=== PATIENT | female | born 1995 | race Caucasian/White ===

== ENCOUNTER → 2020-09-16 09:46 | Outpatient (BNVA) | payer OTHER, SELFPAY | PROVIDERS: Family Provider Family Medicine; PCP Family Medicine; Visit Provider Podiatrist Foot & Ankle Surgery | DX: M79.671 Pain in right foot (principal) | CPT/HCPCS: 73630 ==

== ENCOUNTER 2021-09-16 08:32 | Oncology outpatient (recurring) (ONCR) | payer OTHER, SELFPAY ==
[2021-09-16 10:04] LABS: Basophils % 0.3 %; Eosinophils # 0.2 10^3/uL (0.0-0.8); Eosinophils % 1.9 %; Hematocrit 40.8 % (37.0-47.0); Hemoglobin 13.3 g/dL (11.5-15.3); Lymphocytes # 2.7 10^3/uL (0.8-4.8); Lymphocytes % 28.3 %; Mean Corpuscular HGB Conc 32.6 g/dL (30.0-36.0); Mean Corpuscular Hemoglobin 28.4 pg (28.0-34.0); Monocytes # 0.6 10^3/uL (0.2-0.9); Monocytes % 6.6 %; Neutrophils # 5.84 10^3/uL (1.8-7.7); Neutrophils % 62.6 %; Nucleated Red Blood Cells % 0 %; Platelet Count 617 10^3/cmm (130-400); Red Blood Count 4.69 10^6/uL (4.1-5.3); Red Cell Distribution Width 12.5 % (12.1-15.1); White Blood Count 9.4 10^3/uL (4.0-10.0)
[2021-09-16 10:20] LABS: Ferritin 48 ng/mL (15-150); Iron 52 ug/dL (37-145); Percent Saturation 16.1 % (20-50); Total Iron Binding Capacity 321 mcg/dl; Unsaturated Iron Binding 269 ug/dL (112-347)
[2021-09-16 13:24] LABS: LAB Peripheral Smear Sent for Review
== END 2021-09-25 23:59 | disposition home or self-care (01) ==
PROVIDERS: PCP Family Medicine; Visit Provider Internal Medicine Medical Oncology
DX: D75.839 Thrombocytosis, unspecified (principal); R53.83 Other fatigue
CPT/HCPCS: 36415; 82728; 83540; 83550; 85025

== ENCOUNTER 2024-01-27 17:12 | Outpatient (CLI) | payer MEDICAID, SELFPAY ==
[2024-01-27 17:19] VITALS: BMI 39.2
[2024-01-27 17:24] VITALS: BP 145/95; PULSE 111
[2024-01-27 17:46] VITALS: BP 137/88; PULSE 107
[2024-01-27 18:12] VITALS: BP 141/93; PULSE 105
[2024-01-27 18:14] LABS: Bilirubin Urine Negative (Negative); Blood Urine Negative (Negative); Glucose Urine UA Negative (Normal); Ketones Urine Negative (Negative); Leukocyte Esterase Urine Trace (Negative); Nitrate Urine Negative (Negative); Protein Urine Negative (Negative); Specific Gravity, Urine 1.004 (1.005-1.030); Urine Appearance Clear (CLEAR); Urine Color Yellow (Yellow); Urobilinogen Urine 0.2 mg/dL (Negative)
[2024-01-27 18:16] LABS: Add Urine Microscopic? YES; Bacteria Urine Trace /hpf; Hyaline Casts Urine 0-4 /lpf; RBC Urine 0-2 /hpf (0-2); Squamous Epithelial Cell Urine 0-5 /hpf (0-5); WBC Urine 0-5 /hpf (0-5)
[2024-01-27 18:17] LABS: Basophils % 0.2 %; Eosinophils # 0.1 10^3/uL (0.0-0.8); Eosinophils % 0.9 %; Hematocrit 31.6 % (36-47); Lymphocytes % 14.4 %; Mean Corpuscular HGB Conc 32.9 g/dL (30-55); Mean Corpuscular Hemoglobin 27.7 pg (27-33); Mean Corpuscular Volume 84.3 fl (85-98); Monocytes # 0.8 10^3/uL (0.2-0.9); Neutrophils # 10.59 10^3/uL (1.8-7.7); Nucleated Red Blood Cells % 0 %; Platelet Count 404 10^3/cmm (157-399); Red Blood Count 3.75 10^6/uL (3.85-5.65); Red Cell Distribution Width 12.9 % (12.1-15.1); White Blood Count 13.59 10^3/uL (3.29-11.43)
[2024-01-27 18:32] VITALS: BP 136/86; PULSE 96
[2024-01-27 18:35] LABS: Alanine Aminotransferase 8 U/L (0-33); Albumin Level 3.3 g/dL (3.5-5.2); Alkaline Phosphatase 110 U/L (35-105); Aspartate Amino Transferase 13 U/L (0-32); Blood Urea Nitrogen 5 mg/dL (6-20); Calcium 9.7 mg/dL (8.5-10.5); Carbon Dioxide 22 mmol/L (22-29); Chloride 101 mmol/L (98-107); Creatinine Clr Calc Pharmacy 230.6255; Globulin 3.1 g/dL (1.3-4.6); Glomerular Filtration Rate 145.9 mL/min (90-130); Glucose 143 mg/dL (65-115); Osmolality Calculated 278 mOsm/kg (285-295); Sodium 134 mmol/L (136-145); Total Bilirubin 0.2 mg/dL (0.15-1.2); Total Protein 6.4 g/dL (6.6-8.7); Uric Acid 3.9 mg/dL (2.4-5.7)
[2024-01-27 18:36] LABS: Urine Creatinine 35 mg/dL (28-217); Urine Protein Random 4 mg/dL
[2024-01-27 18:37] LABS: UPRO/UCREAT Ratio 0.11 mg/mg CR
== END 2024-01-27 18:54 | disposition home or self-care (01) ==
LOC: OPOB 17:13 → OBGYN 17:15
PROVIDERS: PCP Family Medicine; Visit Provider Family Medicine
DX: O16.9 Unspecified maternal hypertension, unspecified trimester (principal); Z3A.00 Weeks of gestation of pregnancy not specified
CPT/HCPCS: 80053; 81001; 82570; 84156; 84550; 85025

== ENCOUNTER 2024-03-10 10:20 | Outpatient (CLI) | payer MEDICAID, SELFPAY ==
[2024-03-10] VITALS (23 sets, daily range): BP systolic 84–212; BP diastolic 53–111; PULSE 56–120; BMI 40.4
[2024-03-10 10:52] LABS: Basophils # 0.1 10^3/uL (0.0-0.1); Basophils % 0.4 %; Eosinophils # 0.1 10^3/uL (0.0-0.8); Eosinophils % 1.1 %; Hematocrit 31.8 % (36-47); Lymphocytes # 2.8 10^3/uL (0.8-4.8); Lymphocytes % 21.2 %; Mean Corpuscular HGB Conc 32.7 g/dL (30-55); Mean Corpuscular Hemoglobin 26.7 pg (27-33); Mean Corpuscular Volume 81.5 fl (85-98); Mean Platelet Volume 10.4 fL (7.4-10.4); Monocytes # 0.7 10^3/uL (0.2-0.9); Monocytes % 5.5 %; Neutrophils # 9.28 10^3/uL (1.8-7.7); Neutrophils % 71.3 %; Nucleated Red Blood Cells % 0 %; Platelet Count 466 10^3/cmm (157-399)
[2024-03-10 10:58] LABS: Bilirubin Urine Negative (Negative); Blood Urine Negative (Negative); Glucose Urine UA Negative (Normal); Ketones Urine Negative (Negative); Leukocyte Esterase Urine 1+ (Negative); Nitrate Urine Negative (Negative); Protein Urine Negative (Negative); Urine Appearance Clear (CLEAR); Urine Color Yellow (Yellow); Urobilinogen Urine 0.2 mg/dL (Negative); pH Urine 7.5 (5-7)
[2024-03-10 11:03] LABS: Add Urine Microscopic? YES; Bacteria Urine 1+ /hpf; Hyaline Casts Urine 2.05 /lpf; RBC Urine 0-2 /hpf (0-2); Squamous Epithelial Cell Urine 0-5 /hpf (0-5)
[2024-03-10 11:09] LABS: Alanine Aminotransferase 9 U/L (0-33); Albumin Level 3.3 g/dL (3.5-5.2); Alkaline Phosphatase 148 U/L (35-105); Blood Urea Nitrogen 5 mg/dL (6-20); Calcium 9.4 mg/dL (8.5-10.5); Carbon Dioxide 20 mmol/L (22-29); Chloride 102 mmol/L (98-107); Globulin 3.7 g/dL (1.3-4.6); Glomerular Filtration Rate 118.2 mL/min (90-130); Glucose 138 mg/dL (65-115); Osmolality Calculated 281 mOsm/kg (285-295); Sodium 136 mmol/L (136-145); Total Bilirubin 0.2 mg/dL (0.15-1.2); Uric Acid 6.3 mg/dL (2.4-5.7)
[2024-03-10 11:11] LABS: Anion Gap 17.6 (5-19); Aspartate Amino Transferase 19 U/L (0-32); Potassium 3.6 mmol/L (3.5-5.1)
[2024-03-10 11:15] LABS: UPRO/UCREAT Ratio 0.11 mg/mg CR; Urine Creatinine 80 mg/dL (28-217); Urine Protein Random 9 mg/dL
[2024-03-10 11:17] LABS: Add Urine Culture? No
[2024-03-10] MEDS: NIFEdipine ER (24 hr) 30 mg Tablet 60 MG PO (11:47)
[2024-03-10] MEDS: hyDRALAzine 10 mg Tablet PO (11:48)
--- NOTE | 2024-03-10 13:04 | P.TS_ITS ---
Transfer Summary Providers Date of Discharge/Transfer: 03/10/24 Attending Provider at Admission: Ana Weems MD Attending Provider at Transfer: Ana Weems MD Primary Care Provider: Ana Weems MD Transfer Plans: Anticipated date of transfer: 03/10/24 . Receiving Facility: [facility] . Receiving Provider: Dr. Anamaria Diaz . Additional transfer facility information: After speaking with Dr. Diaz we will start her on magnesium 4 g load at 2 g an hour. We will also go ahead and administer betamethasone 12 mg IM x 1. . Reason for Visit Reason for Visit Elevated BP Hospital Course Hospital Course This is a 28-year-old G1, P0 at 34 weeks 5 days gestation with an JEN of 04/16/2025 who presented to clinic today for routine follow-up visit. (She was diagnosed around 28 weeks gestation with -induced hypertension with an intermittent blood pressure of 140/90. Since most of her blood pressures were within normal limits she was not started on any antihypertensive medications and was monitored. PIH labs were negative) in clinic today her blood pressures were elevated 180/100 and she was sent to labor and delivery for further evaluation. Upon presentation to labor and delivery her blood pressure was 212/111. Follow- up blood pressures on bedrest were 184/99, 182/95, 181/96,184/101. Her urine was negative for protein, her protein creatinine ratio was 0.11 her platelets 466 uric acid 6.3 AST 19 and ALT 9. When her PIH labs were drawn at the patient's blood pressure bottomed out and she nearly passed out. However shortly thereafter her pressure amee again to the 180s. Her pulse has been around 70s to 80s which is around her baseline. heart tones have been reactive. No contractions no loss of fluid no bleeding The patient was given 10 mg oral hydralazine along with 60 mg nifedipine XL x 1. With both those medications on board her blood pressure came down to 163/92. The patient does complain of headache and seeing spots. She has no right upper quadrant pain. Trace edema. This morning in clinic she had a growth ultrasound with ELLIOT that were within normal limits. ELLIOT was around 17. Biophysical profile 8 out of 8 The patient has had routine care at [facility]. Blood type O+ antibody negative, hepatitis B nonreactive, hepatitis C nonreactive, HIV nonreactive, RPR nonreactive, rubella immune, she passed her 1 hour glucose tolerance test. Currently GBS unknown Physical Exam Narrative: Alert and oriented, sitting up in bed, heart regular rate and rhythm, lungs clear to auscultation bilaterally, abdomen is soft gravid, nontender, extremities have trace edema but no calf tenderness TS Data Studies Completed and Pending Laboratory Last Values WBC 13.00 10^3/uL (3.29-11.43) H 03/10/24 10:45 RBC 3.90 10^6/uL (3.85-5.65) 03/10/24 10:45 Hgb 10.40 g/dL (11.27-16.99) L 03/10/24 10:45 Hct 31.8 % (36-47) L 03/10/24 10:45 MCV 81.5 fl (85-98) L 03/10/24 10:45 MCH 26.7 pg (27-33) L 03/10/24 10:45 MCHC 32.7 g/dL (30-55) 03/10/24 10:45 RDW 13.0 % (12.1-15.1) 03/10/24 10:45 Plt Count 466 10^3/cmm (157-399) H 03/10/24 10:45 MPV 10.4 fL (7.4-10.4) 03/10/24 10:45 Neut % (Auto) 71.3 % 03/10/24 10:45 Lymph % (Auto) 21.2 % 03/10/24 10:45 Boundary % (Auto) 5.5 % 03/10/24 10:45 Eos % (Auto) 1.1 % 03/10/24 10:45 Baso % (Auto) 0.4 % 03/10/24 10:45 Neut # (Auto) 9.28 10^3/uL (1.8-7.7) H 03/10/24 10:45 Lymph # (Auto) 2.8 10^3/uL (0.8-4.8) 03/10/24 10:45 Boundary # (Auto) 0.7 10^3/uL (0.2-0.9) 03/10/24 10:45 Eos # (Auto) 0.1 10^3/uL (0.0-0.8) 03/10/24 10:45 Baso # (Auto) 0.1 10^3/uL (0.0-0.1) 03/10/24 10:45 Nucleated RBC % (auto) 0 % 03/10/24 10:45 Nucleated RBCs # 0.0 /100WBC 03/10/24 10:45 Sodium 136 mmol/L (136-145) 03/10/24 10:45 Potassium 3.6 mmol/L (3.5-5.1) 03/10/24 10:45 Chloride 102 mmol/L (98-107) 03/10/24 10:45 Carbon Dioxide 20 mmol/L (22-29) L 03/10/24 10:45 Anion Gap 17.6 (5-19) 03/10/24 10:45 BUN 5 mg/dL (6-20) L 03/10/24 10:45 Creatinine 0.6 mg/dL (0.5-0.9) 03/10/24 10:45 GFR Calculation 118.2 mL/min (90-130) 03/10/24 10:45 Glucose 138 mg/dL (65-115) H 03/10/24 10:45 Calculated Osmolality 281 mOsm/kg (285-295) L 03/10/24 10:45 Uric Acid 6.3 mg/dL (2.4-5.7) H 03/10/24 10:45 Calcium 9.4 mg/dL (8.5-10.5) 03/10/24 10:45 Total Bilirubin 0.2 mg/dL (0.15-1.2) 03/10/24 10:45 AST 19 U/L (0-32) 03/10/24 10:45 ALT 9 U/L (0-33) 03/10/24 10:45 Alkaline Phosphatase 148 U/L (35-105) H 03/10/24 10:45 Total Protein 7.0 g/dL (6.6-8.7) 03/10/24 10:45 Albumin 3.3 g/dL (3.5-5.2) L 03/10/24 10:45 Globulin 3.7 g/dL (1.3-4.6) 03/10/24 10:45 Urine Color Yellow (Yellow) 03/10/24 10:45 Urine Appearance Clear (CLEAR) 03/10/24 10:45 Urine pH 7.5 (5-7) 03/10/24 10:45 Ur Specific [place]klin 1.010 (1.005-1.030) 03/10/24 10:45 Urine Protein Negative (Negative) 03/10/24 10:45 Urine Glucose (UA) Negative (Normal) 03/10/24 10:45 Urine Ketones Negative (Negative) 03/10/24 10:45 Urine Blood Negative (Negative) 03/10/24 10:45 Urine Nitrate Negative (Negative) 03/10/24 10:45 Urine Bilirubin Negative (Negative) 03/10/24 10:45 Urine Urobilinogen 0.2 mg/dL (Negative) 03/10/24 10:45 Ur Leukocyte Esterase 1+ (Negative) A 03/10/24 10:45 Urine RBC 0-2 /hpf (0-2) 03/10/24 10:45 Urine WBC 6-10 /hpf (0-5) 03/10/24 10:45 Ur Squamous Epith Cells 0-5 /hpf (0-5) 03/10/24 10:45 Amorphous Sediment Not Reportable 03/10/24 10:45 Urine Bacteria 1+ /hpf (NONE) H 03/10/24 10:45 Hyaline Casts 2.05 /lpf 03/10/24 10:45 U Random Total Protein 9 mg/dL 03/10/24 10:45 Urine Creatinine 80 mg/dL (28-217) 03/10/24 10:45 Protein/Creatinin Ratio 0.11 mg/mg CR 03/10/24 10:45 Recent Clincial Data Last Vital Signs Pulse 96 03/10/24 12:59 BP 175/90 03/10/24 12:59 Vital Signs Pulse BP 03/10/24 12:59 96 175/90 03/10/24 12:44 75 163/92 03/10/24 12:29 80 162/90 03/10/24 12:14 78 169/90 03/10/24 12:00 78 170/88 03/10/24 11:46 86 184/101 03/10/24 11:29 100 181/96 03/10/24 11:14 87 182/95 03/10/24 11:00 80 184/99 03/10/24 10:45 56 L 84/53 03/10/24 10:29 86 212/111 Intake & Output/Weight 03/08/24 03/09/24 03/10/24 03/11/24 06:59 06:59 06:59 06:59 Weight 90.718 kg Vitals Last Vital Signs Pulse 96 03/10/24 12:59 BP 175/90 03/10/24 12:59 TS Medications Medications Discontinued Medications Hydralazine HCl (Hydralazine 10 Mg Tablet) 10 mg PO QID ONE Stop: 03/10/24 11:37 Last Admin: 03/10/24 11:48 Dose: 10 mg Hydralazine HCl (Hydralazine 20 Mg/Ml Inj 1 Ml) 10 mg IVP ONCE ONE Stop: 03/10/24 12:54 Hydroxyzine Pamoate (Hydroxyzine 25 Mg Capsule) 10 mg PO QID ONE Stop: 03/10/24 11:28 Nifedipine (Nifedipine Er (24 Hr) 30 Mg Tablet) 60 mg PO DAILY ONE Stop: 03/10/24 11:27 Last Admin: 03/10/24 11:47 Dose: 60 mg Allergies Quinolones Allergy (Severe, Verified 01/27/24 18:47) stroke like symptoms all forms of fluoroquinolone antibiotics ciprofloxacin [From Cipro] Allergy (Verified 01/27/24 18:47) Unknown latex Allergy (Verified 01/27/24 18:47) contact dermatitis levofloxacin [From Levaquin] Allergy (Verified 01/27/24 18:47) Unknown moxifloxacin [From Avelox] Allergy (Verified 01/27/24 18:47) Unknown pineapple Allergy (Verified 01/27/24 18:47) Unknown Home Medications 1 cap PO DAILY 01/27/24 [History Confirmed 01/27/24] Discharge Plan Discharge Patient Disposition: Xfer Short-Term Hosp Prescriptions: No Action 1 cap PO DAILY Transfer Attestations Time Spent in Transfer Care: greater than 30 min Quality Metrics Clinical Quality Measures [ No reported AMI, CVA or VTE this stay] Coding Level of Care Code Acute Code for Chg [id number]
[2024-03-10] MEDS: hyDRALAzine 20 mg/mL INJ 1 mL 10 MG IVP (13:05)
[2024-03-10] MEDS: magnesium sulfate premix 4 GM/100 ML PREMIX IV (13:37)
[2024-03-10] MEDS: dextrose 5%-lactated ringers 1,000 ML 75 ML IV (13:55)
[2024-03-10] MEDS: magnesium sulfate premix 20 GM/500 ML BAG IV (13:58)
[2024-03-10] MEDS: betamethasone susp 6 mg/mL 1 mL (per mL) 12 MG IM (14:08)
== END 2024-03-10 15:20 | disposition short-term general hospital (02) ==
LOC: OPOB 10:21 → OBGYN 10:22
PROVIDERS: PCP Family Medicine; Visit Provider Family Medicine
DX: O16.3 Unspecified maternal hypertension, third trimester (principal); Z3A.34 34 weeks gestation of pregnancy
CPT/HCPCS: 80053; 81001; 82570; 84156; 84550; 85025; 96372; J0360; J0702; J3475; J7121

== ENCOUNTER 2024-08-30 20:58 | Emergency (ER) | payer MEDICAID, SELFPAY ==
[2024-08-30 21:04] VITALS: BP 166/96; PULSE 132; RESP 18; TEMP 36.8; O2SAT 100; BMI 36.6
--- OUTSIDE RECORDS SUMMARY | 2024-08-30 21:04 | XMS_ITS | Data Portability ---
Author Organization [facility], [place], [facility] Address [address] [address] Assessment No assessment recorded. Plan of Treatment Reminders Order Date Submit Date Provider Last Modified By Organization Details Last Modified Time Details Appointments None recorded. Lab CBC 2024 025 [place] [facility], [address], [address], 5 12:49:33 iron + TIBC + ferritin, serum 2024 025 [employer] [facility], [address] [place] [address], [facility] [address] [place], [address], 5 05:49:10 Referral None recorded. Procedures None recorded. Surgeries None recorded. Imaging electrocard iogram 2024 025 [email or web address] [facility] ([facility]), [address] [place], [address], 5 12:28:37 Medication Orders labetalol 100 mg tablet 2024 025 [facility] #[id number], [address], [place], [id number], 5 11:05:17 Procardia XL 60 mg tablet,exte nded release 2024 025 [facility] #[id number], [address], [place], [place], [id number], 11:06:07 Patient TargetsNo targets recorded. Patient InstructionsNo instructions recorded. Reason for Referral None Reported. Results Created Date Observation Date Name Description Value Unit Range Abnormal Flag Note LastModifiedBy Organization Detail LastModifiedTime 06/11/1906/10/2024 CBC WBC 7.6 x10 4.0-10 .5 Not Available [facility] [address] [facility], [place], [address], 06/10/2024 12:49:33 06/11/1906/10/2024 CBC RBC 4.42 x10 3.50-5 .50 Not Available [facility] [address] [place] [facility] 1, [place], [address], 06/10/2024 12:49:33 06/11/19 25 06/10/2024 CBC HGB 11.9 g/dL 12.0-1 6.0 low Not Available [facility] [address] [facility], [place], [address], 06/10/2024 12:49:33 06/11/1906/10/2024 CBC HCT 36.2 % 37.0-4 7.0 low Not Available [facility] [address] [facility], [place], [address], 06/10/2024 12:49:33 06/11/19 25 06/10/2024 CBC MCV 81.9 fL 80.0-9 9.9 Not Available [facility] [address] [facility] 1, [place], [address], 06/10/2024 12:49:33 06/11/1906/10/2024 CBC MCH 27.0 pg 27.0-3 2.0 Not Available [facility] [address] [facility] 1, [place], [address], 06/10/2024 12:49:33 06/11/19 25 06/10/2024 CBC MCHC 33.0 g/dL 32.0-3 6.0 Not Available [facility] [address] [facility] 1, [place], [address], 06/10/2024 12:49:33 06/11/19 25 06/10/2024 CBC RDW 15.7 % 11.5-1 4.5 high Not Available [facility] [address] [facility], [place], [address], 06/10/2024 12:49:33 06/11/19 25 06/10/2024 CBC plt 487.3 x10 140.0- 451.0 high Not Available [facility] [address] [facility] [facility] 1, [place], [address], 06/10/2024 12:49:33 06/11/19 25 06/10/2024 CBC lymphocytes % 22.6 % 20.0-5 0.0 Not Available [facility] [address] [facility], [place], [address], 06/10/2024 12:49:33 06/11/19 25 06/10/2024 CBC granulcytes % 64.7 % 30.0-7 0.0 Not Available [facility] [address] [facility] 1, [place], [address], 06/10/2024 12:49:33 06/11/19 25 06/10/2024 CBC monocytes % 7.9 % 2.0-16 .0 Not Available [facility] [address] [facility], [place], [address], 06/10/2024 12:49:33 06/11/19 25 06/10/2024 CBC granulcytes# 4.9 x10 Not [facility] [address] [facility] [place] [facility] 1, [place], [address], 06/10/2024 12:49:33 06/11/19 25 06/10/2024 CBC lymphocytes # 1.7 x10 Not Available [facility] [address] [facility] [place] [facility] 1, [place], [address], 06/10/2024 12:49:33 06/11/19 25 06/10/2024 CBC monocytes # 0.6 x10 Not Avai lable [facility] [address] [facility] [place] [facility] 1, [place], [address], 06/10/2024 12:49:33 06/11/19 25 06/11/2024 IRON, TIBC AND GERALD TIN PANEL iron, total 58 mcg/d L 40-190 normal Not Available [address] [place], [address], 06/11/2024 05:49:10 06/11/19 25 06/11/2024 IRON, TIBC AND GERALD TIN PANEL iron binding capacity 423 mcg/d L_(ca lc) 250-45 0 normal Not Available [place] [address] [place], [address], 06/11/2024 05:49:10 06/11/19 25 06/11/2024 IRON, TIBC AND GERALD TIN PANEL % saturation 14 %_(ca lc) 16-45 low Not Available [place] [address] [place], [address], 06/11/2024 05:49:10 06/11/19 25 06/11/2024 IRON, TIBC AND GERALD TIN PANEL ferritin 8 NG/mL 16-154 low Not Available [place] [address] [place], [address], 06/11/2024 05:49:10 03/10/19 25 03/10/2024 imagi ng/di agnos tic resul t No observ ation record ed. [email or web address] Not Available 2024 11:39:07 06/11/19 25 06/10/2024 elect rocar diogr am No observ ation record ed. [email or web address] [facility] ([facility]) [address] [place], [address], 06/12/2024 14:01:56 06/11/19 25 06/10/2024 elect rocar diogr am No observ ation record ed. [email or web address] [facility] ([facility]) [address] [place], [address], 06/11/2024 08:52:44 06/14/1906/10/2024 elect rocar diogr am No observ ation record ed. [email or web address] [facility] ([facility]) [address] [place], [address], 06/16/2024 09:10:34 Result Notes None recorded. Problems Name Problem SNOMED Code Status Onset Date Resolution Date Notes Provider Name and Address Organization Details Recorded Time 20770663 Completed 202303/17/2024 SACHI lopez [facility] 5 12:10:51 Endometrios is (clinical) 546244276 Active 2023 SACHI lopez [facility] 4 14:39:30 -i nduced hypertensio n 35186345 Completed 2023 SHANTELLE lopez [facility] 5 09:53:20 -i nduced hypertensio n 74975117 Active 2023 HSANTELLE lopez [facility] 5 09:53:20 Problem Notes None recorded. Procedures Surgical History Date Name Laterality Status Provider Name and Address Organization Details Recorded Time 10/01/19 24 sampling of cervix for Papanicolaou smear [facility]/28/2024 11:20:56 01/27/20 22 procedure on fallopian tube completed [facility] 09/06/2023 11:12:56 01/27/20 22 Laparoscopy [facility] 09/06/2023 11:13:16 Imaging Results None recorded. Procedure Notes None recorded. Medical Equipment None Reported. Allergies Allergen ID Allergen Name Allergen Category Reaction Reaction Severity Criticality Documentation Date Start Date Code Code System Note Provider Name and Address Organization Details Recorded Time 56750 moxifloxa ino medicatio n other Not available Not available 09/23/2022 77642 2 RxNorm React ion: Strok e sympt oms; Comme nt: Recor ded 09/28 11:12 AM by Sachi cintron, DANIEL, Offic e Visit ; Promo kelsie; Signi fican ce: *; Reaso n: Drug aller gy; ; Not Available [facility] 3 02:24:06 38308 Levaquin medicatio n Not available Not available Not available 09/23/2022 13869 2 RxNorm Comme nt: Recor ded 09/28 11:12 AM by Sachi cintron, SNIPPER, Offic e Visit ; Promo kelsie; Signi fican ce: *; Reaso n: Drug aller gy; ; Not Available [facility] 3 02:24:07 56314 latex environme nt,medica tion Not available Not available Not available 09/06/2023 63087 91 RxNorm [facility] 4 11:09:51 74413 Cipro medicatio n Not available Not available Not available 09/06/2023 90531 3 RxNorm [facility] 4 11:09:58 Medications Name Sig Start Date Stop Date Status Note LastModified by Organization Details LastModified Time labetalol 200 mg tablet Take 1 tablet every 8 hours by oral route. 03/24 completed Not Available Not Available Not Available fluconazo le 150 mg tablet TAKE 1 TABLET BY MOUTH 1 TIME. MAY REPEAT A DOSE IN 72 HOURS IF SYMPTOMS HAVE NOT COMPLETE LY RESOLVED 09/05 completed Not Available Not Available Not Available nifedipin e ER 60 mg tablet,ex tended release 24 hr TAKE 1 TABLET BY MOUTH EVERY DAY active Not Available Not Available No t Available labetalol 300 mg tablet TAKE 1 TABLET BY MOUTH EVERY 8 HOURS 05/12 completed Not Available Not Available Not Available labetalol 100 mg tablet TAKE 1 TABLET BY MOUTH THREE TIMES DAILY active Not Available Not Available No t Available nitrofura ntoin monohydra te/macroc rystals 100 mg capsule TAKE 1 CAPSULE BY MOUTH EVERY 12 HOURS FOR 7 DAYS 12/27 completed Not Available Not Available Not Available active Not Available Not Avai lable Not Available Ortho Tri-Cycle n LO (28) daily 09/05 completed 436; Recorded 09/17/19 22 12:24PM by Kenzie Marie LPN (Authori melissa through Blake Ruvalcaba MD), Refill Request; Refill Quantity : 30; Tablet; Not Available Not Available Not Available Vitals Date Recorded Body height Body mass index (BMI) Body weight Body temperature Heart rate Oxygen saturation Oxygen saturation in Arterial blood by Pulse oximetry Systolic And Diastolic Provider Name and Address Organization Details Last Updated DateTime 5 149.86 cm 36.6 kg/m2 72894.2 2 g 97.9 [degF] 87 /min 97 % 97 % 140/80 mm[Hg] SACHI MARTINEZ [facility] 5 10:54:36 Date Recorded Body height Body mass index (BMI) Body weight Body temperature Oxygen saturation Oxygen saturation in Arterial blood by Pulse oximetry Heart rate Systolic And Diastolic Provider Name and Address Organization Details Last Updated DateTime 5 149.86 cm 36 kg/m2 61860.4 4 g 97.9 [degF] 97 % 97 % 88 /min 120/70 mm[Hg] SACHI MARTINEZ [facility] 02/13/202 5 10:44:42 Date Recorded Body height Body mass index (BMI) Body weight Body temperature Oxygen saturation Oxygen saturation in Arterial blood by Pulse oximetry Heart rate Systolic And Diastolic Provider Name and Address Organization Details Last Updated DateTime 5 149.86 cm 36 kg/m2 54172.4 4 g 97.1 [degF] 97 % 97 % 100 /min 130/80 mm[Hg] SHANTELLE BLEVINS [facility] 5 11:20:07 Date Recorded Body height Body mass index (BMI) Body weight Body temperature Oxygen saturation Oxygen saturation in Arterial blood by Pulse oximetry Heart rate Systolic And Diastolic Provider Name and Address Organization Details Last Updated DateTime 5 149.86 cm 35.7 kg/m2 48788.8 5 g 98.1 [degF] 98 % 98 % 89 /min 120/80 mm[Hg] SACHI MARTINEZ [facility]acey 5 11:37:19 Date Recorded Body height Body mass index (BMI) Body weight Body temperature Oxygen saturation Oxygen saturation in Arterial blood by Pulse oximetry Heart rate Systolic And Diastolic Provider Name and Address Organization Details Last Updated DateTime 5 149.86 cm 36 kg/m2 89702.4 4 g 97.9 [degF] 98 % 98 % 86 /min 130/90 mm[Hg] SACHI MARTINEZ [facility] 5 10:15:19 Social History None recorded. Functional Status Question Answer Note LastModified by Organizat ion Details LastModified Time Do you use any illicit or recreational drugs? No [email or web address] Information not available 09/06/2023 What is your level of alcohol consumption? None [email or web address] Information not available 09/06/2023 Mental Status None recorded. Family History Relationship Description Onset Age of this Age Resolved Age Notes LastModified by Organization Details LastModified Time Maternal Grandfather Malignant neoplasm of lung [email or web address] Not available 2023 11:11:17 Mother Hypertensive disorder [email or web address] Not available 2023 11:11:25 Paternal Grandmother Myocardial infarction 50 [email or web address] Not available 09/05 11:11:42 Medical History Condition Response Coronary Artery Disease N Other N Gout N Kidney Stones N Blood Diseases N Hyperthyroidism N Breast Cancer N Blood Transfusion N Depression N Hypothyroidism N Lung Disease N COPD N Developmental or Behavioral Disorders N Defects or Inherited Disease N Breast Problem N Difficulty Swallowing N Anesthesia Complications N Anxiety Disorder N Meniere's disease N Muscle, Joint, or Bone Problems N Vision or Eye Problems N Arthritis N Infertility N Polyps N Cancer N Stroke N Varicosities N Endometriosis Y Bladder or Kidney Problems N High Cholesterol N Liver Disease N Fibromyalgia N Headaches N Kidney Disease N Allergies/Hayfever N Heart Problems N Ear or Hearing Problems N Hospitalizations N Thyroid Problems N GI Problems N ADD/ADHD N Skin Problems N Eating Disorder N Anemia N Constipation N Mental Illness N Ovarian Cancer N Diabetes N Bedwetting N Seizures/Epilepsy N Tuberculosis N Eczema N Diverticulitis N Abuse/Domestic Violence N Asthma N Reflux/GERD N Hepatitis N Heart Disease N Pulmonary Embolism N Pre-Eclampsia N Hypertension N Chronic Ear Infections N Osteoporosis N Chicken Pox N Autism Spectrum Disorder (ASD) N Thrombophilias N Gynecological History Statement/Question Response Abnormal Pap N Date of Last Pap Smear Date of LMP 07/11/2023 LMP Definite Obstetrics History GPAL:G 1 P 0 1 0 1 Type Value Premature 1 Living 1 Total 1 Immunizations Vaccine Type Date Status Note Provider Nam e and Address Organization Details Recorded Time Hep B, unspecified formulation 5 completed Not Available [facility] 07/10/2024 09:58:35 Hep B, unspecified formulation 5 completed Not Available [facility] 07/10/2024 09:58:35 DTaP 5 completed Not Available [facility] 07/10/2024 09:58:35 Hib (PRP-T) 5 completed Not Available [facility] 07/10/2024 09:58:35 OPV 5 completed Not Available [facility] 07/10/2024 09:58:35 DTP-Hib 6 completed Not Available [facility] 07/10/2024 09:58:35 OPV 6 completed Not Available [facility] 07/10/2024 09:58:35 DTP-Hib 6 completed Not Available [facility] 07/10/2024 09:58:35 polio, unspecified formulation 6 completed Not Available [facility] 07/10/2024 09:58:35 Hep B, unspecified formulation 6 completed Not Available [facility] 07/10/2024 09:58:35 polio, unspecified formulation 6 completed Not Available [facility] 07/10/2024 09:58:35 DTP-Hib 6 completed Not Available [facility] 07/10/2024 09:58:35 MMR 6 completed Not Available [facility] 07/10/2024 09:58:35 MMR 9 completed Not Available [facility] 07/10/2024 09:58:35 DTaP 9 completed Not Available [facility] 07/10/2024 09:58:35 Tdap 8 completed Not Available [facility] 07/10/2024 09:58:35 meningococcal MCV4P 5 completed Not Available [facility] 07/10/2024 09:58:35 Influenza, split virus, trivalent, PF 7 completed Not Available [facility] 07/10/2024 09:58:35 Influenza, MDCK, quadrivalent, PF 9 completed Not Available [facility] 07/10/2024 09:58:35 COVID-19, mRNA, LNP-S, PF, 30 mcg/0.3 mL dose, adelina-sucrose 2 completed Not Available [facility] 07/10/2024 09:58:35 COVID-19, mRNA, LNP-S, PF, 30 mcg/0.3 mL dose 2 completed Not Available [facility] 07/10/2024 09:58:35 Influenza, MDCK, quadrivalent, PF 3 completed Not Available [facility] 07/10/2024 09:58:35 Influenza, MDCK, trivalent, PF 4 completed Not Available [facility] 07/10/2024 09:58:35 Tdap 5 completed Not Available [facility] 07/10/2024 09:58:35 Influenza, split virus, trivalent, preservative 0 completed Not Available [facility] 09/23/2022 02:29:24 Influenza, split virus, trivalent, preservative 7 completed Not Available [facility] 09/23/2022 02:29:24 Influenza, split virus, trivalent, preservative 8 completed Not Available [facility] 09/23/2022 02:29:24 Past Encounters Encounter ID Performer Location Encounter Start Date Encounter Closed Date Diagnosis/Indication Diagnosis SNOMED-CT Code Diagnosis ICD10 Code Diagnosis Note [id number] Ana Weems MD [facility] ([facility]) [address] [place] [address] [id number] 5 09/06/2023 11:00:13 09/06/2023 16:03:55 Gestation period, 8 weeks 23721174 Z3A.08 Normal pre gnancy in primigravida 7650784653 27671 Z34.01 [id number] Ana Weems MD [facility] ([facility]) [address] [place] [address] [id number] 5 09/11/2023 12:35:32 09/11/2023 17:17:42 [id number] Ana Weems MD [facility] ([facility]) [address] [place] [address] [id number] 5 10/01/2023 14:32:17 10/01/2023 15:44:02 Gestation period, 11 weeks 94174492 Z3A.11 Normal pre gnancy in primigravida 0730090676 80524 Z34.01 [id number] Aan Weems MD [facility] ([facility]) [address] [place] [address] [id number] 5 10/24/2023 10:27:03 10/25/2023 11:53:17 [id number] Ana Weems MD [facility] ([facility]) [address] [place] [address] [id number] 5 10/30/2023 15:43:54 10/30/2023 17:03:12 Gestation period, 15 weeks 1488022 Z3A.15 Normal pre gnancy in primigravida 3768691473 24870 Z34.01 [id number] Ana Weems MD [facility] ([facility]) [address] [place] [address] [id number] 5 11/29/2023 10:26:12 11/29/2023 16:20:07 [id number] Ana Weems MD [facility] ([facility]) [address] [place] [address] [id number] 5 11/29/2023 11:02:15 11/29/2023 15:27:01 Gestation period, 20 weeks 40448718 Z3A.20 Normal pre gnancy in primigravida 0446272631 17386 Z34.01 Increased frequency of urination 188624538 R35.0 1+ leukocytes with symptoms. Will go ahead and treat. Consider that it could also be related to increasing gestation [id number] Jonel Ferreira MD [facility] ([facility]) [address] [place] [address] [id number] 5 12/28/2023 10:13:33 12/28/2023 11:23:31 Normal in primigravida 7382295543 85371 Z34.02 No concerns on exam today. Anticipate guidance provided. Will proceed with glucose tolerance test today. Gestation period, 24 weeks 764889143 Z3A.24 [id number] Ana Weems MD [facility] ([facility]) [address] [place] [address] [id number] 5 01/28/2024 11:00:11 01/28/2024 12:58:22 Gestation period, 28 weeks 44522599 Z3A.28 Normal pre gnancy in primigravida 9867429622 89815 Z34.01 - induced hypertension 05052491 O13.9 new dx 01/28/24. normal [facility] labs 01/27/24. growth u/s ordered. [id number] Ana Weems MD [facility] ([facility]) [address] [place] [address] [id number] 5 02/11/2024 10:47:27 02/11/2024 12:18:42 Gestation period, 30 weeks 95801022 Z3A.30 Normal pre gnancy in primigravida 2208357664 25767 Z34.01 [id number] Ana Weems MD [facility]) [address] [place] [address] [id number] 5 02/11/2024 13:57:13 02/12/2024 12:37:29 [id number] Ana Weems MD [facility] ([facility]) [address] [place] [address] [id number] 5 02/25/2024 10:50:18 02/25/2024 11:45:05 Gestation period, 32 weeks 7628084 Z3A.32 - induced hypertension 20256855 O13.9 new dx 01/28/24. normal PIH labs 01/27/24. growth u/s done 02/11/24 wnl and ELLIOT wnl. [id number] Ana Weems MD [facility] ([facility]) [address] [place] [address] [id number] 5 03/10/2024 09:20:41 03/10/2024 11:02:04 Gestation period, 34 weeks 53873124 Z3A.34 Normal pre gnancy in primigravida 0695812149 71945 Z34.01 - induced hypertension 75025766 O13.9 new dx 01/28/24. normal PIH labs 01/27/24. growth u/s done 02/11/24 wnl and ELLIOT wnl. 164/98, rechecked 170/100 pt sent to L&D for PIH labs and BP monitoring . growth u/s done today wnl. EFW 61.5%, ELLIOT 17.46, BPP 8/8, 03/10/24. [id number] Ana Weems MD [facility] ([facility]) [address] [place] [address] [id number] 5 03/10/2024 09:01:51 03/11/2024 12:11:14 [id number] Ana Weems MD [facility] ([facility]) [address] [place] [address] [id number] 5 03/17/2024 12:01:43 03/17/2024 14:49:23 state 77134959 Z39.2 increase labetalol from 200mg to 300mg TID. f/u in 2 days. [id number] Ana Weems MD [facility] ([facility]) [address] [place] [address] [id number] 5 03/24/2024 10:39:37 03/24/2024 12:05:24 -induced hypertension 68396724 O13.9 Continue current medication s. Follow-up in 3 weeks 03/24/2024 [id number] Ana Weems MD [facility] ([facility]) [address] [place] [address] [id number] 5 04/10/2024 10:33:00 04/11/2024 08:06:24 care 651248294 Z39.2 -induced hypertension 6417358901 9100 O13.9 decrease labetolol from 300 TID to 100 TID. [id number] Ana Weems MD [facility] ([facility]) [address] [place] [address] [id number] 5 05/12/2024 11:16:16 05/22/2024 20:03:01 -induced hypertension 07510404 O13.9 Continue current medication s. Consider possible chronic hypertensi on. Blood pressure is well-contr olled on medication s. Continue medication s. 05/12/24 [id number] Ana Weems MD [facility] ([facility]) [address] [place] [address] [id number] 5 06/10/2024 11:33:03 06/10/2024 12:28:37 Essential hypertension 52669810 I10 13 wks pp so most likely chtn. continue meds. Atypical chest pain 1025 85455 R07.89 Dyspnea on exertion 6084 5006 R06.09 [id number] Ana Weems MD [facility] ([facility]) [address] [place] [address] [id number] 5 07/10/2024 09:58:14 07/14/2024 08:35:16 Essential hypertension 60089176 I10 She is now considered chronic hypertensi ve since her elevated blood pressures have persisted past 12 weeks . We will try to simplify her regimen: stop labetolol. cont nifedipine 60mg ER. call in 1 week with BP (may need to increase to 90 to make up for the labetolol. ). 07/10/2024 Health Concerns Section Related Observation LastModified by Organization Detai ls LastModified Time None Recorded Concern Status LastModified by Organization Details LastModified Time None Recorded Advance Directives Directive None Recorded Payers Insurance Date Sequence Insurance Name Policy Number Policy Thompson Covered Member ID Thompson Member ID Guarantor Name 10/30/2023 1 [facility] [id number] Deana Lyn [id number] Deana Lyn 05/06/2024 1 [facility] (MEDICAID HMO) Deana Lyn [id number] Deana Lyn 07/08/[address] [facility] (MEDICAID HMO) Deana Lyn [id number] Deana Lyn 07/14/2024 [facility] (MEDICAID HMO) Deana Lyn [id number] Deana Lyn Notes Date Note Type Note Provider Name and Address Organization Details Recorded Time 5 text/html HypertensionReported bypatient.Severity:improv ing Alleviating Factors:medication Associated Symptoms:no shortness of breath; no palpitations 130/80 before taking the meds, 117 and dizzy. Ana Weems MD [address] [place] [address], [phone], [facility] [facility] 03/24/2024 13:49:58 5 text/html VisitReported bypatient.Context:pre-ecl ampsia of ; no labor complications Associated Symptoms:no abnormal bleeding; no pelvic pain;constipation Contraception Plan:declines contraception doing well, still on the BP medsoccasional dizziness Ana Weems MD [address] [place] [address], [phone], [facility] 04/10/2024 15:03:24 5 text/html HypertensionReported bypatient.Severity:improv ing Blood pressure doing well on current medications. Continue antihypertensives. Ana Weems MD [address] [place] [address], [phone], [facility] 05/22/2024 14:27:07 5 text/html Hypertension IM/FMReported bypatient.Quality:here for check-up Severity:moderate Alleviating Factors:medication Self Care:non-smoker Associated Symptoms:no headaches;shortness of breath;palpitations;chest pain Blood pressure at home is consistently 120/80's on the medicinePalpitations are random when it happens, happens at restthe sob is just more with exertionchest tightness - maybe from bad posture - everyday for the past week or so, takes ibuprofen for it. sometimes heartburn after dinner.Symptoms were gradual and they do not all occur together.... Like the shortness of breath is not associated with the chest tightness Aan Weems MD [address] [place] [address], [phone], [facility] 06/10/2024 12:42:50 5 text/html Hypertension IM/FMReported bypatient.Quality:here for check-up Alleviating Factors:medication Self Care:not under emotional stress; non-smoker one teens in mornings before taking med and 120 in evenings Ana Weems MD [address] [place] [address], [phone], [facility] 07/12/2024 04:15:19 OBGyn Episode Ob Episode Information Episode Created Date Number of Fetuses Patient Bloodtype Patient rh Status Prepregnancy Weight lbs Domestic Partner Domestic Partner Phone Father Name Mail Carrier Status 09/06/19 24 1 O Positive Francisco Sheikh CLOSED Fetus Data First Name Last Name Admitted to NICU Weight (g) Sex Living Outcome Pediatric Complications Fetus ID Race Codes Race Delivery Type true 2523.10 55 M true Prematur e [id number] VAGINAL Problems Problem Notes Problem Name Start Date End Date Resolution Snomed Code Not e -induced hypertension 02/25/2024 [id number] Jigar Calculation Initial Jigar Date Initial Exam Date Initial Exam Provider Initial Ultrasound Date Last Menstrual Period Date Ultra Sound Weeks Gestation 04/16/2024 09/06/2023 09/11/2023 07/11/2023 9 Eighteen To Twenty Week Jigar Update Ultra Sound Date Fundal Height At Umbil Quickening Date Ultra Sound Latest Weeks Gestation Final Jigar Confirmed By Final Jigar Confirmed Date Final Jigar Date Ultra Sound Latest Days Gestation 0 [email or web address] 10/01/2023 04/16/19 25 0 Pre-poornima Flowsheet Flowsheet Date 09/06/2023 Werner Score Blood Edema Fundus Height Fundus Units Glucose Ketones Leukocytes Nitrite Labor Signs Protein Cervic Dilation Cervic Effacement Cervic Station Type Weight in lbs Pre/Post Dialysis Refused With clothes 192.365319021677 BP Diastolic BP Location Tested BP Systolic BP Type 74 R arm 140 sitting Fetus Heart Rate Present Fetus Movement Comments Flowsheet Date 09/11/2023 Werner Score Blood Edema Fundus Height Fundus Units Glucose Ketones Leukocytes Nitrite Labor Signs Protein Cervic Dilation Cervic Effacement Cervic Station Type Weight in lbs Pre/Post Dialysis Refused BP Diastolic BP Location Tested BP Systolic BP Type Fetus Heart Rate Present Fetus Movement Comments Flowsheet Date 10/01/2023 Werner Score Blood Edema Fundus Height Fundus Units Glucose Ketones Leukocytes Nitrite Labor Signs Protein Cervic Dilation Cervic Effacement Cervic Station Type Weight in lbs Pre/Post Dialysis Refused Weight 188.447748563250 BP Diastolic BP Location Tested BP Systolic BP Type 60 120 Fetus Heart Rate Present A 165 Fetus Movement Comments Flowsheet Date 10/24/2023 Werner Score Blood Edema Fundus Height Fundus Units Glucose Ketones Leukocytes Nitrite Labor Signs Protein Cervic Dilation Cervic Effacement Cervic Station Type Weight in lbs Pre/Post Dialysis Refused BP Diastolic BP Location Tested BP Systolic BP Type Fetus Heart Rate Present Fetus Movement Comments Flowsheet Date 10/30/2023 Werner Score Blood Edema Fundus Height Fundus Units Glucose Ketones Leukocytes Nitrite Labor Signs Protein Cervic Dilation Cervic Effacement Cervic Station 18 cm none trace Negative neg Type Weight in lbs Pre/Post Dialysis Refused With clothes 188.870220637884 BP Diastolic BP Location Tested BP Systolic BP Type 72 L arm 128 sitting Fetus Heart Rate Present A 150 Fetus Movement Comments Baby minerva Raygoza' Flowsheet Date 11/29/2023 Werner Score Blood Edema Fundus Height Fundus Units Glucose Ketones Leukocytes Nitrite Labor Signs Protein Cervic Dilation Cervic Effacement Cervic Station Type Weight in lbs Pre/Post Dialysis Refused BP Diastolic BP Location Tested BP Systolic BP Type Fetus Heart Rate Present Fetus Movement Comments Flowsheet Date 11/29/2023 Werner Score Blood Edema Fundus Height Fundus Units Glucose Ketones Leukocytes Nitrite Labor Signs Protein Cervic Dilation Cervic Effacement Cervic Station 22 cm none 1+ Negative trace Type Weight in lbs Pre/Post Dialysis Refused 189.959821680065 BP Diastolic BP Location Tested BP Systolic BP Type 80 120 Fetus Heart Rate Present A 148 Fetus Movement A Yes Comments Pt. statse she feels like sh e still has to pee when she is done. Thinks she might have a UTI. Flowsheet Date 12/28/2023 Werner Score Blood Edema Fundus Height Fundus Units Glucose Ketones Leukocytes Nitrite Labor Signs Protein Cervic Dilation Cervic Effacement Cervic Station 24 cm none none Negative neg Type Weight in lbs Pre/Post Dialysis Refused With clothes 190.576807182656 BP Diastolic BP Location Tested BP Systolic BP Type 80 L arm 130 sitting Fetus Heart Rate Present A 170 Fetus Movement A Yes Comments right leg is numb, headaches Flowsheet Date 01/28/2024 Werner Score Blood Edema Fundus Height Fundus Units Glucose Ketones Leukocytes Nitrite Labor Signs Protein Cervic Dilation Cervic Effacement Cervic Station none trace trace Type Weight in lbs Pre/Post Dialysis Refused Weight 193.571620771295 BP Diastolic BP Location Tested BP Systolic BP Type 88 140 Fetus Heart Rate Present A 150 Fetus Movement A Yes Comments 132/11.5, Kick counts gone o john today.was in triage for GRIMES and elevated BP (improved with rest and PIH labs wnl). Flowsheet Date 02/11/2024 Werner Score Blood Edema Fundus Height Fundus Units Glucose Ketones Leukocytes Nitrite Labor Signs Protein Cervic Dilation Cervic Effacement Cervic Station 32 cm none trace Negative trace Type Weight in lbs Pre/Post Dialysis Refused With clothes 194.632393859946 BP Diastolic BP Location Tested BP Systolic BP Type 80 R arm 138 sitting Fetus Heart Rate Present A 150 Fetus Movement Comments epidural consult, baby meds, Baby boy Albert, circ yes, no BC, Dr.Barr higgins Flowsheet Date 02/11/2024 Werner Score Blood Edema Fundus Height Fundus Units Glucose Ketones Leukocytes Nitrite Labor Signs Protein Cervic Dilation Cervic Effacement Cervic Station Type Weight in lbs Pre/Post Dialysis Refused BP Diastolic BP Location Tested BP Systolic BP Type Fetus Heart Rate Present Fetus Movement Comments Flowsheet Date 02/25/2024 Werner Score Blood Edema Fundus Height Fundus Units Glucose Ketones Leukocytes Nitrite Labor Signs Protein Cervic Dilation Cervic Effacement Cervic Station 35 cm none trace trace Type Weight in lbs Pre/Post Dialysis Refused Weight 197.905379194664 BP Diastolic BP Location Tested BP Systolic BP Type 90 138 Fetus Heart Rate Present A 150 Fetus Movement A Yes Comments growth u/s in 2 wks, NSTs st arting in 2 weeks. Flowsheet Date 03/10/2024 Werner Score Blood Edema Fundus Height Fundus Units Glucose Ketones Leukocytes Nitrite Labor Signs Protein Cervic Dilation Cervic Effacement Cervic Station Type Weight in lbs Pre/Post Dialysis Refused BP Diastolic BP Location Tested BP Systolic BP Type Fetus Heart Rate Present Fetus Movement Comments Flowsheet Date 03/10/2024 Werner Score Blood Edema Fundus Height Fundus Units Glucose Ketones Leukocytes Nitrite Labor Signs Protein Cervic Dilation Cervic Effacement Cervic Station 1+ 36 cm none 2+ Negative trace Type Weight in lbs Pre/Post Dialysis Refused With clothes 200.779829916191 BP Diastolic BP Location Tested BP Systolic BP Type 98 R arm 164 sitting 100 L arm 170 sitting Fetus Heart Rate Present A 150 Fetus Movement Comments sent to L&D for BP Flowsheet Date 03/17/2024 Werner Score Blood Edema Fundus Height Fundus Units Glucose Ketones Leukocytes Nitrite Labor Signs Protein Cervic Dilation Cervic Effacement Cervic Station Type Weight in lbs Pre/Post Dialysis Refused Weight 190.338099733966 BP Diastolic BP Location Tested BP Systolic BP Type 100 160 Fetus Heart Rate Present Fetus Movement Comments Menstrual History Last Menstrual Date Menses Monthly On Bcp Conception Prior Menses Frequency Hcg Plus Date Menarche Onset Age 0507/11/2023 Genetic Screening And Infection History Question Response Note Patient's Age Will Be 35 Yea rs Or Older At Estimated Date of Delivery false Thalassemia (Mohawk, Bulgarian, Mediterranean, Or Background): MCV < 80 false Neural Tube Defect (Meningomyelocele, Spina Bifi da, Or Anencephaly) false Congenital Heart Defect false Down Syndrome false Rikki-Sachs (eg, Amish, Cajun, Persian-Altura) f alse Anibal Disease false Sickle Cell Disease Or Trait () false Hemophilia Or Other Blood Disorders false Muscular Dystrophy false Cystic Fibrosis false Oolitic's Chorea false Intellectual Disability/Autism false If Yes, Was Person Tested For Fragile X? false Other Inherited Genetic Or Chromosomal Disorder false Maternal Metabolic Disorder (eg, Type 1 Diabetes , PKU) false Patient Or Baby's Father Had A Child With Defects Not Listed Above false Recurrent Loss, Or A Stillbirth false Medications (including Suppl ements, Vitamins, Herbs, OTC Drugs), Illicit/Recreational Drugs, Alcohol true If Yes, Agent(s) And Strength/Dosage false Any Other Genetic History false Live With Someone With TB Or Exposed To TB false Patient Or Partner Has History Of Genital Herpes false Rash Or Viral Illness Since Last Menstrual Perio d false History Of STD, Gonorrhea, Chlamydia, HPV, Syphi lis false Other Infection History false History of HIV false History of Hepatitis false Prior GBS-infected child false Hemoglobinopathy Or Carrier false Other Structural Defect false Recent Travel History Outside of Country false Mental Retardation/Autism false Delivery Information Delivery Date Delivery Type Labor Anesthesia Weeks Gestation Incision Type Labor Labor Length Hrs Delivered By Post Complications Tubal Sterilization Discharge Date Comments 5 Induce d 35.1 true false Discharge Information Feeding Method Contraceptive Method Maternal HG B and HCT Levels
--- OUTSIDE RECORDS SUMMARY | 2024-08-30 21:04 | XMS_ITS | Encounter Summary ---
Author Organization [facility] Address [address] [place] [address] Care Team Providers Care Tinner Helper Name Role Phone Mora Serna MD Primary Care Provider [phone] Encounter Details Date Type Department Care Team (Late st Contact Info) Description 09/10/2015 Lab Requisition [facility] Services [address] [place] [address] Jaret Friedman MD NO ADDRESS ON FILE Social History Tobacco Use Types Packs/Day Years Used Date Smoking Tobacco: Never Smokeless Tobacco: Never Alcohol Use Standard Drinks/Week Comments Yes 1 (1 standard drink = 0.6 oz pur e alcohol) month Comments No Sex and Gender Information Value Date Recorded Sex Assigned at Not on file Legal 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
--- OUTSIDE RECORDS SUMMARY | 2024-08-30 21:04 | XMS_ITS | Patient Health Record ---
Author Organization [facility] Address [address] [place] [address] Care Team Providers Care Paid Search Marketing Strategist Name Role Phone Mariam Zuniga Primary Care Provider [phone] Allergies Allergen (clinical drug ingredient) Drug/Non Drug Allergy documented on EMR Reaction Allergy Type Onset Date Status moxifloxacin Avelox Unknown Drug Allergy Acti ve ciprofloxacin Cipro Unknown Drug Allergy Act makayla Levaquin Unknown Drug Allergy Active Latex Latex Unknown Allergy Active Reason For Referral No Information Medications Medication SIG (Take, Route, Frequency, Duration) Notes Start Date End Date Status Mucinex 600 MG 1 tablet as needed O rally every 12 hrs Active Potassium Chloride ER 10 MEQ 1 tablet with food Orally Twice a day for 30 days Active Social History Tobacco Use: Social History Observation Description Date Details (start date - stop date) Never Smoker NA - NA xTobacco Use/Smoking Question Answer Notes Are you a nonsmoker Alcohol Screen (Audit-C) Question Answer Notes Did you have a drink contain ing alcohol in the past year? Yes How often did you have a dri nk containing alcohol in the past year? 2 to 4 times a month (2 points) How many drinks did you have on a typical day when you were drinking in the past year? 1 or 2 drinks (0 point) How often did you have 6 or more drinks on one occasion in the past year? Less than monthly (1 point) Points 3 Interpretation Positive PHQ-9 Question Answer Notes Little interest or pleasure in doing things Not at all Feeling down, depressed, or hopeless Not at all Trouble falling or staying asleep, or sleeping t oo much Not at all Feeling tired or having little energy Not at all Poor appetite or overeating Not at all Feeling bad about yourself, or that you are a failure, or have let yourself or your family down Not at all Trouble concentrating on thi ngs, such as reading the newspaper or watching television Not at all Moving or speaking so slowly that other people could have noticed. Or the opposite ? being so fidgety or restless that you have been moving around a lot more than usual Not at all Thoughts that you would be b drake off , or of hurting yourself in some way Not at all Total Score 0 Problems Problem Type SNOMED Code ICD Code Onset Dates Problem Status W/U Status Risk Notes Problem [id number] Tonsillar exudate (J35.8) Active confirmed Plan Of Treatment No Information Insurance Providers Payer Name Payer Address Payer Phone Subscriber Number Group Number Insured Name Patient Relationship to Insured Coverage Start Date Coverage End Date Web [facility] Roberto [address] [place] [phone] [id number] Deana Lyn Self - patient is the insured Medical (General) History Medical History History ICD Code anxiety depression heart palpitations Surgical History Surgery Date(Month/Year) wisdom teeth extraction 2018
--- OUTSIDE RECORDS SUMMARY | 2024-08-30 21:04 | XMS_ITS | Clinical Summary ---
Author Organization [facility] [place] [address] Care Team Providers Care Domestic Freight Forwarder Name Role Phone Mora Serna MD Primary Care Provider Allergies No known active allergies Medications promethazine-co deine (PHENERGAN WITH CODEINE) 6.25-10 mg/5 mL solutionIndicat ions:Cough Take 5 mL by mouth every 4 hours as needed for Cough. 120 mL 8 Active dextromethorpha n-guaiFENesin (MUCINEX DM) 30-600 mg Tablet Sustained Release 12HRIndications :Cough Take 1 Tablet by mouth every 12 hours. 12 Tablet 8 Active fluticasone (FLONASE) 50 mcg/spray [place], SuspensionIndic ations:Acute maxillary sinusitis, recurrence not specified Administer 2 Sprays in each nostril daily. 16 Gram 8 Active Active Problems Problem Noted Date Diagnosed Date Heart murmur 09/17/2014 Immunizations Immunization Administration Dates Next Due (M-M-R II/PRIORIX)(12 MO UP) MEASLES, MUMPS AND RUBELLA VIRUS VACCINE, 0.5 ML IM/SUBCUT 10/25/1998,02/26/1996 Dt Dtp Dtap Vaccine 10/25/1998, 6,09/04/1995,06/19,1994 HIB, Unspecified Formulation 02/26/1996, 09/04/1995,06/20/1995,10/25 Hepatitis B Vaccine 11/20/1995,1994,1994 IPV/OPV 02/26/1996, 6,06/20/1995,10/25 Influenza Vaccine Quad Split (18-64) Pf Id 01/18/2016 Meningococcal A Conjugate Vaccine IM 09/17/2014 Family History Medical History Relation Name Comments Unknown Father Healthy Maternal Grandfather Hypertension Maternal Grandmother Lung Cancer Maternal Grandmother Cancer Mother pre cervical ca ncer Other Mother +HPV Thyroid Disease Mother Unknown Paternal Grandfather Heart Disease Paternal Grandmother Hypertension Paternal Grandmother Breast Cancer Neg Hx Colon Cancer Neg Hx Relation Name Status Comments Father Maternal Grandfather Maternal Grandmother Mother Paternal Grandfather Paternal Grandmother Social History Tobacco Use Types Packs/Day Years Used Date Smoking Tobacco: Never Smokeless Tobacco: Never Alcohol Use Standard Drinks/Week Comments Yes 1 (1 standard drink = 0.6 oz pur e alcohol) month Comments No Sex and Gender Information Value Date Recorded Sex Assigned at Not on file Legal 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 Female 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 MILL 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 Gender Identity Not on file Sexual Orientation Not on file Last Filed Vital Signs Vital Sign Reading Time Taken Comments Blood Pressure 148/84 03/02/2017 10:50 AM STRIP MILL OPERATOR Pulse 103 03/02/2017 10:50 AM STRIP MILL OPERATOR Temperature 36.6 C (97.9 F) 03/02/2017 10:50 AM STRIP MILL OPERATOR Respiratory Rate 16 03/02/2017 10:5 0 AM STRIP MILL OPERATOR Oxygen Saturation 100% 03/02/2017 10: 50 AM STRIP MILL OPERATOR room air Inhaled Oxygen Concentration - - Weight 74.3 kg (163 lb 12.8 oz) 018 10:50 AM STRIP MILL OPERATOR Height 149.9 cm (4' 11 ) 03/02/2017 10: 50 AM STRIP MILL OPERATOR Body Mass Index 33.08 03/02/2017 10:50 AM STRIP MILL OPERATOR Plan of Treatment Health Maintenance Due Date Last Done Comments DTAP/TDAP/TD VACCINES (6 - Tdap) 2005 10/25/1998, 02/26/1996, 09/04/1995, Additional history exists HPV/Cotest (21-29) 08/24/2015 CERVICAL CANCER SCREENING 2024 HPV/Cotest (30-65) 2024 PAP SMEAR 2024 INFLUENZA VACCINE (#1) 2024 12/15/2018, 2015 HEPATITIS B VACCINES Completed 11/20/1995, 1994, 1994 HPV VACCINES Aged Out No longer eligi ble based on patient's age to complete this topic Insurance [facility] Care Teams Domestic Freight Forwarder Relationship Specialty Start Date End Date Mora Serna MD [address] [facility] [address] [place] [phone] PCP - General Family Practice 09/02/14
--- OUTSIDE RECORDS SUMMARY | 2024-08-30 21:04 | XMS_ITS | Encounter Summary ---
Author Organization [facility] Address [address] [place] [address] Care Team Providers Care Shank Rander Name Role Phone Mora Serna MD Primary Care Provider [phone] Encounter Details Date Type Department Care Team (Late st Contact Info) Description 10/16/2016 Lab Requisition [facility] Laboratory Services [address] [place] [address] Jaret Friedman MD NO ADDRESS ON FILE Social History Tobacco Use Types Packs/Day Years Used Date Smoking Tobacco: Never Smokeless Tobacco: Never Alcohol Use Standard Drinks/Week Comments Yes 1 (1 standard drink = 0.6 oz pur e alcohol) month Comments No Sex and Gender Information Value Date Recorded Sex Assigned at Not on file Legal Sex Female 5: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 NURSE 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 Gender Identity Not on file Sexual Orientation Not on file documented as of this encounter Plan of Treatment Not on file documented as of this encounter Procedures Procedure Name Priority Date/Time Associated Diagnosis Comments HIV DETECTION W/REFLX CONFIRMATION Routine 10/16/2016 9:23 AM CDT HEPATITIS B SURFACE AB, QUAL Routine 10/16/2016 9:23 AM CDT HEPATITIS B SURFACE ANTIGEN Routine 10/16/2016 9:23 AM CDT HEPATITIS C ANTIBODY Routine 10/16/2016 9:23 AM CDT documented in this encounter Results * HEPATITIS B SURFACE AB, QUAL (10/16/2016 9:23 AM CDT) HEPATITIS B SURFACE AB, QUAL Non-react makayla Non-reactive, Repeatedly reactive 10/16/2016 2:57 PM CDT [facility] Blood Collection / Unknown 10/16/2016 9:23 AM CDT 10/16/2016 1:32 PM CDT Jaret Friedman MD CHEMISTRY ORDERABLES Final Res ult Performing Organization Address [facility]/ZIP Co de Phone Number [facility] CLIA# [id number] [address] [place] [address] * HEPATITIS B SURFACE ANTIGEN (10/16/2016 9:23 AM CDT) HEPATITIS B SURFACE AG NON-REACTI VE Non-react makayla 10/16/2016 2:57 PM CDT [facility] Blood Collection / Unknown 10/16/2016 9:23 AM CDT 10/16/2016 1:32 PM CDT Jaret Friedman MD CHEMISTRY ORDERABLES Final Res ult Performing Organization Address [facility] de Phone Number [facility] CLIA# [id number] [address] [place] [address] * HEPATITIS C ANTIBODY (10/16/2016 9:23 AM CDT) HEPATITIS C AB NON-REACTI VE Non-react makayla 10/16/2016 2:56 PM CDT [facility] Blood Collection / Unknown 10/16/2016 9:23 AM CDT 10/16/2016 1:32 PM CDT Jaret Friedman MD CHEMISTRY ORDERABLES Final Res ult Performing Organization Address [facility] Co de Phone Number [facility] CLIA# [id number] [address] [place] [address] * HIV DETECTION W/REFLX CONFIRMATION (10/16/2016 9:23 AM CDT) HIV-1 AND 2 ABS AND HIV-1 AG Non-reacti ve Non-React makayla 10/16/2016 2:57 PM CDT [facility] Blood Collection / Unknown 10/16/2016 9:23 AM CDT 10/16/2016 1:32 PM CDT us Jaret Friedman MD CHEMISTRY ORDERABLES Final Res ult [facility] CLIA# [id number] [address] [place] [address] documented in this encounter Visit Diagnoses Not on filedocumented in this encounter Care Teams Shank Rander Relationship Specialty Start Date End Date Mora Serna MD [address] [facility] [address] [place] [address] PCP - General Family Practice 09/02/14 documented as of this encounter
--- OUTSIDE RECORDS SUMMARY | 2024-08-30 21:04 | XMS_ITS | Encounter Summary ---
Author Organization [facility] Address [address] [place] [address] Care Team Providers Care Lighter Captain Name Role Phone Mora Serna MD Primary Care Provider [phone] Encounter Details Date Type Department Care Team (Late st Contact Info) Description 09/10/2015 Lab Requisition [facility] [address] [place] [address] Jaret Friedman MD NO ADDRESS ON FILE Social History Tobacco Use Types Packs/Day Years Used Date Smoking Tobacco: Never Smokeless Tobacco: Never Alcohol Use Standard Drinks/Week Comments Yes 1 (1 standard drink = 0.6 oz pur e alcohol) month Comments No Sex and Gender Information Value Date Recorded Sex Assigned at Not on file Legal Sex Female 5:00 AM WARE DRESSER Gender Identity Not on file Sexual Orientation Not on file documented as of this encounter Plan of Treatment Not on file documented as of this encounter Procedures Procedure Name Priority Date/Time Associated Diagnosis Comments VARICELLA ZOSTER IGG Routine 09/10/2015 1:00 PM CDT documented in this encounter Results * VARICELLA ZOSTER IGG (09/10/2015 1:00 PM CDT) VZV IGG Positive 09/11/2015 12:28 PM CDT [facility] Comment: Results suggest response to immunization or prior exposure to the virus. REFERENCE VALUE Vaccinated: Positive (>=1.1 AI) Unvaccinated: Negative (<=0.8 AI) VARICELLA IGG INDEX 1.5 09/11/2015 12:28 PM CDT [facility] Comment: Test Performed by: [place] [address] Nurse College: Armando Curtis II, M.D., Ph.D. Blood specimen (specimen) Venipuncture - Lab Collect / Unknown 09/10/2015 1:00 PM CDT 09/10/2015 2:35 PM CDT us Jaret Friedman MD CHEMISTRY ORDERABLES Final Res ult [facility] documented in this encounter Visit Diagnoses Not on filedocumented in this encounter Care Teams Lighter Captain Relationship Specialty Start Date End Date Mora Serna MD [address] [phone] PCP - General Family Practice 09/02/14 documented as of this encounter
--- OUTSIDE RECORDS SUMMARY | 2024-08-30 21:04 | XMS_ITS | Clinical Summary ---
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 Plant Superintendent Name Role Phone Mora Serna MD Primary Care Provider [phone] Allergies Active Allergy Reactions Criticality Noted Date Comments Ciprofloxacin Other (See Comments) High 03/10/2024 Pt states she had stroke like symptoms Latex Rash Low 03/10/2024 Pt states contact dermatitis Levofloxacin Other (See Comments) High 03/10/2024 Pt states she had stroke like symptoms Moxifloxacin Unknown 03/10/2024 Pineapple Other (See Comments) 03/13/2024 unknown Quinolones Other (See Comments) High 03/10/2024 Pt states stroke like symptoms Medications fluticasone propionate (FLONASE) 50 mcg/spray [place], Suspension nasal inhalerIndicati ons:Acute maxillary sinusitis, recurrence not specified Administer 2 Sprays in each nostril daily. 16 Gram 0 8 Active VIT-IRON FUM-FOLIC AC ORAL Take by mouth. Activ e NIFEdipine (PROCARDIA XL) 60 mg Extended Release 24 hour tablet Take 1 Tablet (60 mg) by mouth daily. 30 Tablet 03/15/2024 3:37 PM HOSPICE CLINICAL MARKETER 5 Active ibuprofen (MOTRIN) 600 mg tablet Take 1 Tablet (600 mg) by mouth every 6 hours. 120 Tablet 03/15/2024 3:37 PM HOSPICE CLINICAL MARKETER Active labetaloL (NORMODYNE) 200 mg tablet Take 1 Tablet (200 mg) by mouth every 8 hours. 90 Tablet 03/15/2024 3:37 PM HOSPICE CLINICAL MARKETER Active ferrous sulfate 325 mg (65 mg iron) tablet Take 1 Tablet (325 mg) by mouth daily. Active Active Problems Problem Noted Date Diagnosed Date (spontaneous vaginal delivery) 03/15/2024 Pre-eclampsia, severe, delivered 03/13/2024 Gestational hypertension, third trimester 2024 Chronic hypertension in 03/10/2024 Resolved Problems Problem Noted Date Diagnosed Date Resolved Date Heart murmur 09/17/2014 03/10/2024 Encounters Date Type Department Care Team Description 08/13/2024 External Device Data STL ABSTRACTION Provider, Abstract 07/29/2024 External Device Data STL ABSTRACTION Provider, Abstract 07/17/2024 External Device Data STL ABSTRACTION Provider, Abstract 07/17/2024 External Device Data STL ABSTRACTION Provider, Abstract 07/01/2024 External Device Data STL ABSTRACTION Provider, Abstract 06/24/2024 External Device Data STL ABSTRACTION Provider, Abstract 06/24/2024 External Device Data STL ABSTRACTION Provider, Abstract 06/17/2024 External Device Data STL ABSTRACTION Provider, Abstract from Last 3 Months Immunizations Immunization Administration Dates Next Due (M-M-R [...] drink = 0.6 oz pur e alcohol) Feeling Safe Answer Date Recorded Are you in a relationship wi th someone who hurts you emotionally and/or physically? No 03/10/2024 Food Insecurity Answer Date Recorded Patient needs follow up regardin 06/24/2024 Transportation Needs Answer Date Record ed Patient needs follow up regardin 06/24/2024 Housing Stability Answer Date Recorded Social/Environmental Concerns No concerns Utility Needs Answer Date Recorded Patient needs follow up regardin 06/24/2024 Comments No Sex and Gender Information Value Date Recorded Sex Assigned at Not on file Legal Sex Female 12:27 AM HOSPICE CLINICAL MARKETER Gender Identity Not on file Sexual Orientation Not on file Last Filed Vital Signs Vital Sign Reading Time Taken Comments Blood Pressure 140/87 03/15/2024 12:27 PM HOSPICE CLINICAL MARKETER Pulse 92 03/15/2024 12:27 PM HOSPICE CLINICAL MARKETER Temperature 36.9 C (98.5 F) 03/15/2024 12:27 PM HOSPICE CLINICAL MARKETER Respiratory Rate 16 03/15/2024 12:27 PM HOSPICE CLINICAL MARKETER Oxygen Saturation 98% 03/15/2024 12:27 PM HOSPICE CLINICAL MARKETER Inhaled Oxygen Concentration - - Weight 88.5 kg (195 lb) 03/14/2024 9:00 AM HOSPICE CLINICAL MARKETER Height 149.9 cm (4' 11 ) 03/12/2024 12:55 AM HOSPICE CLINICAL MARKETER Body Mass Index 39.39 03/12/2024 12:55 AM HOSPICE CLINICAL MARKETER Plan of Treatment Health Maintenance Due Date Last Done Comments DTAP/TDAP/TD VACCINES (6 - Tdap) 2005 10/25/1998, 02/26/1996, 09/04/1995, Additional history exists Preventative Visit-Managed Medicaid 2013 HPV/Cotest (21-29) 08/24/2015 CERVICAL CANCER SCREENING 2024 HPV/Cotest (30-65) 2024 PAP SMEAR 2024 INFLUENZA VACCINE (#1) 2024 8, 02/27/2016, 01/18/2016, Additional history exists HEPATITIS B VACCINES Completed 11/20/1995, 1994, 1994 HPV VACCINES Aged Out No longer eligi ble based on patient's age to complete this topic Insurance [facility] [employer] MEDICAID RX [employer] (INTERNAL) [facility] [employer] RX [employer]ING Medicaid Advance Directives For more information, please contact: [phone] * Full Code (Latest Code Status on File) Date Activated Date Inactivated Comments 03/14/2024 4:50 AM 03/15/2024 6:03 PM * Full Code Date Activated Date Inactivated Comments 03/13/2024 2:45 PM 03/14/2024 4:50 AM * Full Code Date Activated Date Inactivated Comments 03/10/2024 6:16 PM 03/13/2024 2:45 PM Care Teams Biodiesel Plant Superintendent Relationship Specialty Start Date End Date Mora Serna MD [address] [phone] PCP - General Family Practice 09/02/14
--- NOTE | 2024-08-30 21:20 | ED_ITS ---
HPI - Allergic Reaction General: Chief complaint: Allergic Reaction Stated complaint: Allergic Reaction Time Seen by Provider: 08/30/24 21:10 History of Present Illness: HPI narrative: 29-year-old female who came home from a alliance party earlier in the evening. She says that she got in the shower, and after her shower, she began feeling itchy feeling in her throat. She developed a tightness there. She felt like her tongue swelled a bit. Her lips turn numb. She had anxiety with this, and states I may have had a panic attack . She is [place] now, but the itchiness/scratchy feeling to the throat and feeling of full tongue persists. She never developed a rash or skin itch. Related Data Home Medications ?Medication ?Instructions ?Recorded ?Confirmed 1 cap PO DAILY 01/27/2403/21 Allergies Allergy/AdvReac Type Severity Reaction Status Date / Time Quinolones Allergy Severe stroke Verified 01/27/24 18:47 like symptoms ciprofloxacin (From Cipro) Allergy Unknown Verified 01/27/24 18:47 latex Allergy contact Verified 01/27/24 18:47 dermatitis levofloxacin (From Levaquin) Allergy Unknown Verified 01/27/24 18:47 moxifloxacin (From Avelox) Allergy Unknown Verified 01/27/24 18:47 pineapple Allergy Unknown Verified 01/27/24 18:47 PFS ED PFSH: Medical History Plantar fibromatosis Mitral valve disorder Mild mitral valve regurge Surgical History (Updated 09/16/21 @ 13:46 by Gerald Moore MD) History of wisdom tooth extraction Family History (Updated 09/16/21 @ 09:03 by Zahra Whitman LPN) Other CAD (coronary artery disease) Cancer Hyperlipidemia Hypertension Lung disease Denies family history of Diabetes Clotting disorder Dementia Psychiatric illness Chronic kidney disease (CKD) Suicide Anesthesia complication Bleeding disorder Stroke Social History Smoking and tobacco/nicotine status: never used tobacco/nicotine Alcohol intake: current Alcohol intake frequency: few times a month Physical Exam Const: COMMON NORMALS: no acute distress GENERAL APPEARANCE: cooperative; not ill appearing and not frail appearing HENMT: COMMON NORMALS: normocephalic, atraumatic and Normal external nose present HEAD & SCALP: normocephalic and atraumatic FACE & SINUS: normal facial exam and face symmetric NOSE: Normal external nose present Eye: COMMON NORMALS: Equal, round and reactive pupils present and EOMs intact bilaterally PUPIL: Yes Equal, round and reactive pupils present Neck/C-Spine: GENERAL: Yes trachea midline Chest: CHEST: Yes Symmetrical chest wall rise Resp: COMMON NORMALS: normal respiratory effort, No retractions, No use of accessory muscles and clear to auscultation bilaterally AUSCULTATION: clear to auscultation bilaterally Cardio: COMMON NORMALS: regular rhythm RATE: tachycardic RHYTHM: regular rhythm GI: COMMON NORMALS: Normal to inspection, nondistended, normoactive bowel sounds present Extremity: COMMON NORMALS: no pedal edema Neuro: MARIBEL COMA SCALE: document GCS findings [place] coma scale eye opening: Spontaneous Maribel coma scale verbal response: Orientated Maribel coma scale motor response: Obey commands Maribel coma scale total score: 15 SENSORY EXAM: Yes extremities (intact) Psych: COMMON NORMALS: speech normal SPEECH: Yes normal speech Skin: COMMON NORMALS: no rashes or lesions noted GENERAL SKIN EXAM: no rashes or lesions noted Course Vital Signs: Vital signs: Vital Signs Temperature 98.3 F 08/30/24 21:04 Pulse Rate 107 H 08/31/24 00:01 Respiratory Rate 16 08/31/24 00:01 Blood Pressure 139/88 08/31/24 00:01 Pulse Oximetry 98 08/31/24 00:01 Oxygen Delivery Me thod Room Air 08/30/24 22:08 MDM - Allergic Reaction Medical Decision Making 25 mg Benadryl was taken orally 30 minutes prior to arrival. She is beginning to improve. Of note, the Benadryl had phenylephrine in it, which may account for some of the increased heart rate. The patient is given 50 mg more IV Benadryl, Solu-Medrol, and Pepcid. She is improved currently. No radiology studies performed this visit Discharge Plan Discharge Patient Disposition: Home Clinical Impression: Allergic reaction, Anxiety reaction Condition: Stable Prescriptions: No Action 1 cap PO DAILY Discharge Orders: Discharge ED (Routine); Ordered 08/30/24 Ordered By: Toni Ortiz Referrals: Ana Weems MD [Primary Care Provider, [facility][1]] - 1-3 days Patient Instructions: Allergic Reaction, Anxiety (ED), Opioid Safety, Pain Management, Patient Portal & Mami Instructions Activity Restrictions/Additional Instructions: Return for any problems. It may be beneficial to take antihistamines, such as Zyrtec or loratadine, once daily for the next 3 to 4 days. 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
[2024-08-30 22:08] VITALS: BP 112/78; PULSE 62; RESP 16; O2SAT 98
[2024-08-30] MEDS: methylPREDNISolone sod succ 125 mg/2 mL INJ 80 MG IVP (22:16)
[2024-08-30] MEDS: diphenhydrAMINE 50 mg/mL SDV 1mL IVP (22:18)
[2024-08-31 00:01] VITALS: BP 139/88; PULSE 107; RESP 16; O2SAT 98
== END 2024-08-31 00:03 | disposition home or self-care (01) ==
PROVIDERS: Emergency Provider Emergency Medicine; PCP Family Medicine
DX: T78.40XA Allergy, unspecified, initial encounter (principal); F41.1 Generalized anxiety disorder; X58.XXXA Exposure to other specified factors, initial encounter
CPT/HCPCS: 96374; 96375; 99284; J1200; J2919; J3490